=== PATIENT | female | born 1955 | race Caucasian/White ===

== ENCOUNTER 2024-04-19 20:16 | Emergency (ER) | payer OTHER ==
[~2024-04-19] VITALS: Ht 170.2 cm; Wt 136.1 kg
[2024-04-19] MEDS ORDERED: FAMOTIDINE. 20 MG/2 ML VIAL IV ONE (21:01)
[2024-04-19] MEDS ORDERED: KETOROLAC TROMETHAMINE 30 MG INJ ONE (21:01)
[2024-04-19 21:08] LABS: BASOPHILS # (AUTO) 0.1 K/UL (0.0-0.2); BASOPHILS % (AUTO) 0.7 % (0.0-2.0); EOSINOPHILS # (AUTO) 0.3 K/uL (0.0-0.7); EOSINOPHILS % (AUTO) 2.1 % (0.0-7.0); HEMATOCRIT 44.7 % (31.2-41.9); HEMOGLOBIN 14.4 g/dL (10.9-14.3); LYMPHOCYTES % (AUTO) 7.2 % (20.5-51.5); MEAN CORPUSCULAR HEMOGLOBIN 31.5 uug (24.7-32.8); MEAN CORPUSCULAR HGB CONC 32 g/dL (32.3-35.6); MEAN CORPUSCULAR VOLUME 97.9 fL (75.5-95.3); MONOCYTES # (AUTO) 1.3 K/uL (0.1-1.30); MONOCYTES % (AUTO) 9.5 % (0.0-11.0); NEUTROPHILS # (AUTO) 11.1 K/uL (1.8-8.9); NEUTROPHILS % (AUTO) 80.5 % (38.5-71.5); PLATELET COUNT (AUTO) 197 K/uL (179-408); RED BLOOD CELL COUNT(AUTO) 4.56 MIL/uL (3.63-4.92); RED CELL DISTRIBUTION WIDTH 16.1 % (12.3-17.7); WHITE BLOOD COUNT (AUTO) 13.8 K/uL (3.8-11.8)
[2024-04-19 21:23] LABS: DIFFERENTIAL COMMENT 1
[2024-04-19 21:35] LABS: CREATININE 1.3 mg/dL (0.6-1.3); POTASSIUM 3.8 mmol/L (3.5-5.1)
[2024-04-19 21:45] LABS: ALBUMIN 3.3 g/dL (3.4-5.0); BILIRUBIN,DIRECT 0.1 mg/dL (0.0-0.2); BILIRUBIN,TOTAL 0.4 mg/dL (0.2-1.0); TOTAL PROTEIN, SERUM 6.8 g/dL (6.4-8.2)
[2024-04-19] MEDS: KETOROLAC TROMETHAMINE 15 MG INJ IVP ONE (21:45)
[2024-04-19] MEDS: FAMOTIDINE. 20 MG/2 ML VIAL IV ONE (21:45)
[2024-04-19] MEDS ORDERED: PIPERACILLIN/TAZO 4.5 GM VIAL IV ONE (23:26)
[2024-04-19] MEDS: PIPERACILLIN SODIUM/TAZOBACTAM 4.5 G in IV DEXTROSE 5% 50 ML IV SCH (23:40)
[2024-04-20] MEDS ORDERED: HYDROMORPHONE 1 MG/1 ML DISP.SYRIN ONE (00:09)
[2024-04-20] MEDS: HYDROMORPHONE 1 MG/1 ML DISP.SYRIN IV ONE (00:10)
[2024-04-20 01:00] VITALS: O2SAT 96
== END 2024-04-20 02:45 | disposition short-term general hospital (02) ==
LOC: ER 20:17
DX: K81.0 Acute cholecystitis (principal); R10.11 Right upper quadrant pain; E78.5 Hyperlipidemia, unspecified; Z98.890 Other specified postprocedural states; Z88.2 Allergy status to sulfonamides
CPT/HCPCS: 99285; 74176; 96375 ×2; 80076; 80048; 83690; 85025; 87040; 36415; 96365; J3490; J1885; J2543; J1170; A4606; A4663